=== PATIENT | female | born 1995 | race African-American/Black ===

== ENCOUNTER 2024-04-28 01:09 | Emergency (ER) | payer SELFPAY ==
[~2024-04-28] VITALS: Ht 162.6 cm; Wt 163.6 kg
[2024-04-28 01:16] VITALS: TEMP 98.6
[2024-04-28] MEDS ORDERED: Home HYDROcodone/Acetaminophen 5/325 MG #4 TABS/PACK PO ONE (03:15)
[2024-04-28] MEDS ORDERED: Ibuprofen 600 MG TAB PO ONE (03:15)
[2024-04-28] MEDS ORDERED: Amoxicillin 500 MG CAP PO ONE (03:15)
[2024-04-28] MEDS ORDERED: AMOXICILLIN 50500 MG PO (03:17)
[2024-04-28] MEDS ORDERED: NORCO 325 MG-51 TAB PO (03:17)
[2024-04-28 03:29] VITALS: BP 166/129; PULSE 79
== END 2024-04-28 03:29 | disposition home or self-care (01) ==
LOC: COL.ER 01:09
DX: K04.7 Periapical abscess without sinus (principal)